=== PATIENT | female | born 2000 | race Caucasian/White ===

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

== ENCOUNTER 2018-08-08 06:52 | Day surgery (SDC) | payer OTHER ==
[~2018-08-08 06:52] MED LIST: ADDERALL XR 2020 MG PO; FLAGYL500 MG PO; NAPROSYN500 MG PO
[2018-08-08 07:16] LABS: HEMATOCRIT 37.5 % (36.0-48.0); HEMOGLOBIN 12.3 g/dL (12-16); MCH 29.4 pg (26.0-34.0); MCHC 32.8 g/dL (31.0-37.0); MCV 89.7 fL (80.0-100.0); MEAN PLATELET VOLUME 10.5 fL (7.4-10.4); RBC 4.18 10x6/uL (4.00-5.40); RDW 14.4 % (11.5-14.5); WBC 8.5 10x3/uL (4.8-10.8)
[2018-08-08 07:48] VITALS: BP 126/72; BMI 29.4
[2018-08-08 08:25] LABS: HCG SERUM NEGATIVE (NEGATIVE)
[2018-08-08] MEDS ORDERED: VISTARIL50 MG PO (12:06)
[2018-08-08] MEDS ORDERED: PERCOCET 5-3251 TAB PO (12:06)
[2018-08-08] MEDS ORDERED: ZOFRAN ODT4 MG/UDTAB PO (12:07)
--- NOTE | 2018-08-08 15:32 | OP ---
PATIENT NAME: KATE PIMENTEL MEDICAL RECORD: [id number] :98 LOCATION:[facility] ADMISSION DATE: SURGEON: YONI LEWIS DO DATE OF OPERATION: 08/08/2018 PROCEDURE PERFORMED: Right shoulder arthroscopy with rotator cuff repair using Regeneten graft and subacromial bursectomy. PREOPERATIVE DIAGNOSIS: Right shoulder rotator cuff tear. POSTOPERATIVE DIAGNOSIS: Right shoulder rotator cuff tear. INDICATIONS: Ms. Pimentel is a 17-year-old female who has had right shoulder pain for quite some time, she did not know why. She did not recall an injury or anything, but she had been doing a lot of cheering and overhead lifting and things like that. She had an MRI from a primary care, which showed a partial thickness to full thickness rotator cuff tear in the supraspinatus tendon and possible labral tear. On exam, she certainly had weakness in the supraspinatus and positive Tioga's. I informed her it is very rare for a 17-year-old to have a rotator cuff tear, but looking at the MRI and reviewing the images and after exam, she had all the indications for it and did have the tear on the imaging. I informed her of the risks including infection, bleeding, damage to nerves and vessels and that we would be using the graft that this graft helps the tendon to regrow. She was okay with that and signed the consent. She is also aware of the risk of retear and need for further surgery. SURGEON: Yoni Lewis DO DESCRIPTION OF PROCEDURE: The patient was taken to the operative suite, laid in supine position, given general anesthetic. The timeout was performed, everyone was in agreement with the correct side, site, and patient. She was given 900 mg of clindamycin preoperatively. She was laid in the left lateral decubitus position with the actual placed and well-padded in a beanbag and then the right shoulder was prepped and draped in a sterile fashion. After the timeout was performed, the procedure began with insufflating the shoulder joint with 60 mL of normal saline through the posterior portal. This was then removed and the 18-gauge spinal needle was removed and the posterior portal was established with an 11-blade scalpel. The shoulder joint was then entered with the trocar through the posterior portal. The anterior portal was then established with a 15-gauge spinal needle and an 11-blade scalpel. Inspection in the joint, the trocar was brought in through the front, the anterior portal pulling up on the labrum and the bicep. There was no labral tear noted. This was inspected thoroughly; however, the supraspinatus was inspected and there was fraying greater than 50% seen on the articular side of the supraspinatus. The infraspinatus looked to be in good shape. There were no loose bodies seen in the joint at all. Bicep tendon was in good shape as was the subscapularis, no tear was seen in it. This was then marked with an 18-gauge spinal needle. The tear in the supraspinatus and then the trocar was entered into the subacromial space. There was a lot of bursa there, very inflamed and the bursa was removed at that time with the shaver and any bleeding was coagulated with the burner. Once we removed, the partial tear was also seen on the bursal side and then the camera was entered back into the shoulder joint remarking the tear seen on both sides to ensure that we put the graft in the correct location. A sterile dissection was then made from the lateral portal, which had been established prior to this with an 11-blade scalpel and 18-gauge spinal needle. This was OPERATIVE REPORT [id number] KATE PIMENTEL extended with a 15-blade and then careful dissection was made down to the rotator cuff. The bursa that had not been removed previously was removed at that time and then the site was marked with an 18-gauge spinal needle. I then used the Regeneten graft. This was placed in the wound over the partial tear, secured medially with dena and then laterally with bone anchors. It was very well fixed and once these were put in place, the retractors were removed and a picture was taken. It was a very nice repair over the partial tear of the rotator cuff. This site was then irrigated and the portals were then closed with a 4-0 Monocryl in inverted interrupted fashion. The larger incision for the rotator cuff was closed with 2-0 Vicryl in the deltoid fascia [id number] and then 2-0 Vicryl in inverted interrupted fashion on the skin and 4-0 Monocryl ran the skin and then Dermabond glue was placed over that. She was then awakened, placed in a sling and taken to recovery in stable condition. Blood loss was minimal. COMPLICATIONS: None. TRANSINT:[id number] Voice Confirmation ID: [id number] DOCUMENT ID: [id number] YONI LEWIS DO at 1532 CC: [id number] DICTATION DATE: 08/08/18 1200 INFORMATION ASSURANCE ANALYST: 08/08/18 1450 [facility] 08/08/18 [place] [id number] [place] [address]
== END 2018-08-08 13:45 | disposition home or self-care (01) ==
LOC: D.OPS 06:52 → D.PAN 08:30 → D.OPS 08:30
PROVIDERS: Anesthesiology; ATTEND Orthopaedic Surgery
DX: M75.111 Incomplete rotator cuff tear or rupture of right shoulder, not specified as traumatic (principal); M71.811 Other specified bursopathies, right shoulder; Z01.812 Encounter for preprocedural laboratory examination